=== PATIENT | male | born 1995 | race African-American/Black ===

== ENCOUNTER 2017-11-02 23:00 | Emergency (ER) | payer BC, OTHER ==
[~2017-11-02] VITALS: Ht 188 cm; Wt 111.2 kg
[2017-11-02 23:05] VITALS: TEMP 36.8; Ht 188 cm; Wt 111.2 kg
[2017-11-02] MEDS ORDERED: KETOROLAC TROMETHAMINE 60 MG/2 ML VIAL IM STA (23:54)
--- NOTE | 2017-11-02 23:57 | EMERGENCY ROOM VISIT NOTE ---
History Report prepared by Daniela: Jefry Mayer Under the Supervision of: Dr. Eliza Esteban D.O. First contact with patient: 23:08 Chief Complaint: BACK PAIN Stated Complaint: BACK PAIN History of Present Illness The patient is a 22 year old male who presents to the Emergency Room with complaints of constant right-sided back pain beginning this morning. The patient states that he has been having intermittent back pain for the past year. He notes that his pain is located on his right side and runs up his spine. He reports that his pain typically hurts for a night and then resolves itself when he wakes up the next day. The patient states that his back pain was also bad a week ago before he went to [place]. He denies any urinary symptoms , changes in his bowel movements, buttock pain, and numbness in his legs. He notes that he has tried taking ibuprofen and Tylenol with no relief of his symptoms. He reports that he was given cyclobenzaprine Flexeril 5 months ago for his symptoms, which he only uses when his pain is really bad. The patient states that he took a dose of his cyclobenzaprine Flexeril about 3 hours ago. He rates his current pain as a 9.5/10. The patient states that he has not noticed any triggers that cause his back pain. Source of History: patient Onset: this morning Position: back (right-sided) Symptom Intensity: 9.5/10 Timing: constant Associated Symptoms: No urinary symptoms, No numbness (in his legs) Note: The patient also denies any changes in his bowel movements and buttock pain. Review of Systems See HPI for pertinent positives & negatives. A total of 6 systems reviewed and were otherwise negative. Past Medical & Surgical Medical Problems: (1) No chronic problems Family History Patient reports no known family medical history. Social History Smoking Status: Never Smoker Alcohol Use: none Marital Status: single Housing Status: lives with family Occupation Status: [employer] student Current/Historical Medications Scheduled Cyclobenzaprine Hcl (Flexeril), 1 TAB PO TID Allergies Coded Allergies: No Known Allergies (Unverified , 11/02/17) Physical Exam Vital Signs Date Time Temp Pulse Resp B/P (MAP) Pulse Ox O2 Delivery O2 Flow Rate FiO2 11/03/17 00:49 65 16 146/68 98 Room Air 11/02/17 23:05 36.8 98 18 131/75 94 Room Air Physical Exam BACK: Visual and palpable right lumbar paraspinous muscle spasm in L2-L4, Extremities: Normal strength in both lower extremities, normal patellar reflexes. Medical Decision & Procedures Medications Administered Medications (Trade) Dose Ordered Sig/Cecilia Route Start Time Stop Time Status Last Admin Dose Admin Ketorolac Tromethamine (Toradol Inj) 60 mg NOW STAT IM 11/02/17 23:54 11/02/17 23:56 DC 11/03/17 00:06 60 MG Oxycodone/ Acetaminophen (Percocet 5-325mg Tab) 2 tab NOW ONCE PO 11/03/17 00:00 11/03/17 00:01 DC 11/03/17 00:06 2 TAB Procedure 2354: Toradol Inj 60mg IM 0000: Oxycodone/Acetaminophen 2 tab PO ED Course 2347: Past medical records reviewed. The patient was evaluated in room B4. A complete history and physical exam was performed. 2354: Toradol Inj 60mg IM 0000: Oxycodone/Acetaminophen 2 tab PO. I reviewed lumbar spine films from 2 years ago which were normal. 0052: I reevaluated and updated the patient. He is feeling better and would like to leave. 0114: Upon reevaluation, the patient was stable. I discussed findings and results with him. He verbalized agreement of the treatment plan. The patient was discharged home. Medical Decision The patient is a 22 year old male who presents to the Emergency Room with complaints of right-sided constant back pain beginning this morning. Differential diagnoses include sciatica, lumbar spinal stenosis, lumbar paraspinous muscle spasm, kidney stone, and UTI. This is a 22-year-old male patient who has some discomfort to the right side of his back which is intermittent. There is obvious muscle spasm in that area consistent with lumbar paraspinous muscle tension. The patient got relief of his discomfort while here in the emergency department. He was given additional Flexeril to use for muscle relaxation. I have encouraged him to apply heat to that side of his back into possibly get massage therapy. He was told return here to the emergency department if he had any worsening symptoms. When he is feeling better, he should do lumbar spine stretches to possibly prevent these intermittent episodes of pain. Medication Reconcilliation Current Medication List: was personally reviewed by me Blood Pressure Screening Patient's blood pressure: Elevated blood pressure Blood pressure disposition: Elevated BP felt to be situational (secondary to pain) Impression Primary Impression: Lumbar back pain Scribe Attestation The scribe's documentation has been prepared under my direction and personally reviewed by me in its entirety. I confirm that the note above accurately reflects all work, treatment, procedures, and medical decision making performed by me. Departure Information Dispostion Home / Self-Care Prescriptions Cyclobenzaprine Hcl (FLEXERIL) 10 Mg Tab 1 TAB PO TID for 10 Days, #30 TAB Prov: Eliza Esteban D.O. 11/03/17 Referrals (PCP) Forms HOME CARE DOCUMENTATION FORM, IMPORTANT VISIT INFORMATION Patient Instructions My [facility] Additional Instructions Rest. Apply heat to the right side of your back. Motrin - 800-1000mg motrin every 8 hours with food for a max of 3 days when needed for pain. Flexeril - 1 tab. every 8 hours for muscle spasm. I would suggest getting a massage and stretching your lumbar spine to avoid these episodes
[2017-11-03] MEDS ORDERED: OXYCODONE/ACETAMINOPHEN 5-325 TAB PO ONE
[2017-11-03 00:49] VITALS: BP 146/68; PULSE 65; O2SAT 98
[2017-11-03] MEDS ORDERED: CYCL10TA6 PO (00:56)
== END 2017-11-03 01:06 | disposition home or self-care (01) ==
LOC: C.EDB 23:01
DX: M54.5 Low back pain (principal)